=== PATIENT | female | born 1980 | race Caucasian/White ===

== ENCOUNTER 2017-05-31 05:48 | Emergency (ER) | payer OTHER ==
[2017-05-31 06:33] VITALS: BMI 24.2
[2017-05-31 07:04] LABS: URINE APPEARANCE CLOUDY; URINE BILIRUBIN NEGATIVE (NEGATIVE); URINE BLOOD 1+ (NEGATIVE); URINE COLOR LTYELLOW; URINE GLUCOSE (UA) NEGATIVE (NEGATIVE); URINE KETONE NEGATIVE (NEGATIVE); URINE NITRITE NEGATIVE (NEGATIVE); URINE UROBILINOGEN NEGATIVE mg/dL (0.2-1.0)
[2017-05-31 07:10] LABS: URINE PROTEIN 1+ (NEGATIVE)
[2017-05-31 07:11] LABS: URINE BACTERIA MANY /hpf (NONE SEEN); URINE RBC 6 /hpf (0-3); URINE WBC 250 /hpf (3-5)
--- NOTE | 2017-05-31 07:24 | PDOC ---
History of Present Illness - General Chief Complaint: Back Pain Stated Complaint: BACK PAIN Time Seen by Provider: 05/31/17 06:45 - History of Present Illness Initial Comments: 05/31/17 07:21 36 F with no PMH presents to ER with lower back pain x 1 week. Pt states that the pain is in the middle of her lower back, nonradiating. She denies any trauma or falls. Pt also endorses mild burning sensation at the end of urination. Denies h/o UTI. Pt has been taking tylenol with minimal relief. Yesterday, her friend gave her amoxicillin from the DR, which she has taken 2 doses of. Pt denies F/C. Denies vaginal discharge or bleeding. LMP was 2 weeks ago. Denies abdominal pain/N/V/D. Past History - Past Medical History Allergies/Adverse Reactions: Allergies Allergy/AdvReac Type Severity Reaction Status Date / Time No Known Allergies Allergy Verified 05/31/17 06:31 Home Medications: Ambulatory Orders Sulfamethoxazole/Trimethoprim [Bactrim Ds -] 1 tab PO BID #14 tablet 05/31/17 COPD: Yes - Reproductive History Is Patient Now?: No (#): 4 Para: 1 Therapeutic (s) & number: No - Immunization History Td Vaccination: Yes Immunization Up to Date: Yes - Suicide/Smoking/Psychosocial Hx Smoking Status: No Smoking History: Never smoked Years of Tobacco Use: 0 Have you smoked in the past 12 months: No Number of Cigarettes Smoked Daily: 0 Cigars Per Day: 0 Information on smoking cessation initiated: No Hx Alcohol Use: No Drug/Substance Use Hx: No Substance Use Type: None Review of Systems - Review of Systems Comments:: 05/31/17 07:23 "GENERAL/CONSTITUTIONAL: No fever or chills. No weakness. HEAD, EYES, EARS, NOSE AND THROAT: No change in vision. No ear pain or discharge. No sore throat. CARDIOVASCULAR: No chest pain or shortness of breath. RESPIRATORY: No cough, wheezing, or hemoptysis. GASTROINTESTINAL: No nausea, vomiting, diarrhea or constipation. GENITOURINARY: +dysuria MUSCULOSKELETAL: No joint or muscle swelling or pain. + lower back pain SKIN: No rash NEUROLOGIC: No headache, vertigo, loss of consciousness, or change in strength/ sensation. ENDOCRINE: No increased thirst. No abnormal weight change. HEMATOLOGIC/LYMPHATIC: No anemia, easy bleeding, or history of blood clots. ALLERGIC/IMMUNOLOGIC: No hives or skin allergy. " *Physical Exam - Vital Signs Last Vital Signs Temp Pulse Resp BP Pulse Ox 98.7 F 79 20 140/91 100 05/31/17 06:31 05/31/17 06:31 05/31/17 06:31 05/31/17 06:31 05/31/17 06:31 - Physical Exam Comments: 05/31/17 07:23 "GENERAL: Awake, alert, and fully oriented, in no acute distress HEAD: No signs of trauma EYES: PERRLA, EOMI, sclera anicteric, conjunctiva clear ENT: Auricles normal inspection, hearing grossly normal, nares patent, oropharynx clear without exudates. Moist mucosa NECK: Nontender, no stepoffs, Normal ROM, supple, no lymphadenopathy, JVD, or masses LUNGS: Breath sounds equal, clear to auscultation bilaterally. No wheezes, and no crackles HEART: Regular rate and rhythm, normal S1 and S2, no murmurs, rubs or gallops ABDOMEN: Soft, nontender, normoactive bowel sounds. No guarding, no rebound. No masses BACK: no CVAT, no midline tenderness EXTREMITIES: Normal range of motion, no edema. No clubbing or cyanosis. No cords, erythema, or tenderness NEUROLOGICAL: Cranial nerves II through XII intact. 5/5 strength and sensation in all extremities, Normal speech, normal gait SKIN: Warm, Dry, normal turgor, no rashes or lesions noted. " ED Treatment Course - LABORATORY CBC & Chemistry Diagram: 05/31/17 07:37 05/31/17 07:37 - ADDITIONAL ORDERS Additional order review: Laboratory Results 05/31/17 05/31/17 06:23 06:23 Urine Color Ltyellow Urine Appearance Cloudy Urine pH 5.0 Ur Specific [place] 1.008 Urine Protein 1+ H Urine Glucose (UA) Negative Urine Ketones Negative Urine Blood 1+ H Urine Nitrite Negative Urine Bilirubin Negative Urine Urobilinogen Negative Urine WBC (Auto) 250 Urine RBC (Auto) 6 Ur Epithelial Cells Rare Urine Bacteria Many Urine HCG, Qual Negative Medical Decision Making - Medical Decision Making 05/31/17 07:23 36 F with lower back pain and dysuria. Likely UTI. Pt with no midline spinal tenderness, no CVA tenderness. Vitals stable with normal exam. - Labs, UA, UCx, UPT *DC/Admit/Observation/Transfer Diagnosis at time of Disposition: UTI (urinary tract infection) - Discharge Dispostion Disposition: HOME Condition at time of disposition: Stable - Prescriptions Prescriptions: Sulfamethoxazole/Trimethoprim [Bactrim Ds -] 1 tab PO BID #14 tablet - Referrals Referrals: Chris Ivan MD [Staff Physician] - - Patient Instructions Printed Discharge Instructions: Urinary Tract Infection Additional Instructions: Take antibiotics as prescribed. Call Dr. Ivan's office for follow up with a primary care doctor within 1 week. Return to the emergency department if you have any new, worsening or concerning symptoms. Print Language: AZERI - Post Discharge Activity - Attestations Physician Attestion: 06/02/17 12:43 I, Dr. Geovanny Dominguez MD, attest that this document has been prepared under my direction and personally reviewed by me in its entirety. I further attest, that it accurately reflects all work, treatment, procedures and medical decision -making performed by me.
[2017-05-31 07:50] LABS: BASOPHIL 0.6 % (0-2.0); EOSINOPHIL 1.2 % (0-4.5); MCH 30.3 pg (25.7-33.7); MCHC 33.2 g/dl (32.0-36.0); MEAN CELL VOLUME 91.3 fl (80-96); MEAN PLT VOLUME 8.9 fl (7.5-11.1); NEUTROPHILS 60.4 % (42.8-82.8); PLATELET COUNT 255 K/MM3 (134-434); RDW 13.8 % (11.6-15.6)
[2017-05-31 08:29] LABS: ALBUMIN 3.6 g/dl (3.4-5.0); ANION GAP 7 (8-16); BILIRUBIN,TOTAL 0.3 mg/dL (0.2-1.0); CALCIUM 8.5 mg/dL (8.5-10.1); CO2 24 mmol/L (21-32); CREATININE 0.6 mg/dL (0.55-1.02); GLUCOSE,RANDOM 87 mg/dL (74-106); TOT PROT 7.1 g/dl (6.4-8.2)
[2017-05-31 08:35] LABS: ALK PHOS 51 U/L (45-117); SGPT/ALT 15 U/L (12-78)
[2017-05-31 08:39] LABS: SGOT/AST 13 U/L (15-37)
--- NOTE | 2017-05-31 09:21 | PDOC ---
*Physical Exam - Vital Signs Last Vital Signs Temp Pulse Resp BP Pulse Ox 98.7 F 79 20 140/91 100 05/31/17 06:31 05/31/17 06:31 05/31/17 06:31 05/31/17 06:31 05/31/17 06:31 ED Treatment Course - LABORATORY CBC & Chemistry Diagram: 05/31/17 07:37 05/31/17 07:37 - ADDITIONAL ORDERS Additional order review: Laboratory Results 05/31/17 05/31/17 05/31/17 07:37 06:23 06:23 Sodium 137 Potassium 4.4 Chloride 106 Carbon Dioxide 24 Anion Gap 7 L BUN 9 D Creatinine 0.6 D Creat Clearance w eGFR > 60 Random Glucose 87 Calcium 8.5 Total Bilirubin 0.3 D AST 13 L D ALT 15 D Alkaline Phosphatase 51 Total Protein 7.1 Albumin 3.6 Urine Color Ltyellow Urine Appearance Cloudy Urine pH 5.0 Ur Specific [place] 1.008 Urine Protein 1+ H Urine Glucose (UA) Negative Urine Ketones Negative Urine Blood 1+ H Urine Nitrite Negative Urine Bilirubin Negative Urine Urobilinogen Negative Urine WBC (Auto) 250 Urine RBC (Auto) 6 Ur Epithelial Cells Rare Urine Bacteria Many Urine HCG, Qual Negative 05/31/17 07:37 RBC 3.92 MCV 91.3 MCHC 33.2 RDW 13.8 MPV 8.9 Neutrophils % 60.4 Lymphocytes % 30.5 Monocytes % 7.3 Eosinophils % 1.2 Basophils % 0.6 Medical Decision Making - Medical Decision Making 05/31/17 09:20 Labs within normal limits. No CVAT on exam. UA consistent with UTI. Will treat and discharge with follow-up with primary care doctor. I discussed the physical exam findings, ancillary test results and final diagnoses with the patient. I answered all of the patient's questions. The patient was satisfied with the care received and felt comfortable with the discharge plan and treatment plan. The patient will call their primary care physician within 24 hours to arrange follow-up and will return to the Emergency Department with any new, persistent or worsening symptoms. *DC/Admit/Observation/Transfer Diagnosis at time of Disposition: UTI (urinary tract infection) - Discharge Dispostion Disposition: HOME Condition at time of disposition: Stable Admit: No - Prescriptions Prescriptions: Sulfamethoxazole/Trimethoprim [Bactrim Ds -] 1 tab PO BID #14 tablet - Referrals Referrals: Chris Ivan MD [Staff Physician] - - Patient Instructions Printed Discharge Instructions: Urinary Tract Infection Additional Instructions: Take antibiotics as prescribed. Call Dr. Ivan's office for follow up with a primary care doctor within 1 week. Return to the emergency department if you have any new, worsening or concerning symptoms. Print Language: BOLIVIAN - Post Discharge Activity - Attestations Physician Attestion: 05/31/17 09:21 I, Dr. Ellen Rangel MD, attest that this document has been prepared under my direction and personally reviewed by me in its entirety. I further attest, that it accurately reflects all work, treatment, procedures and medical decision -making performed by me.
[2017-05-31 10:05] VITALS: BP 105/52; PULSE 88; TEMP 98.5
[2017-05-31 11:47] LABS: URINE LEUK ESTERASE 3+ (NEGATIVE)
--- NOTE | 2017-06-02 07:49 | PDOC ---
Patient Follow-up (Call Back) - Post ED Follow - Up Condition at time of discharge: Stable Disposition at time of original discharge: HOME Reason for Call Back: Abnwl. Microbiology (Urine culture on preliminary shows lactose fermenting negative bacilli. Patient currently on Bactrim. Will await final report.)
== END 2017-05-31 10:05 | disposition home or self-care (01) ==
LOC: JER 05:48
DX: N39.0 Urinary tract infection, site not specified (principal); B96.89 Other specified bacterial agents as the cause of diseases classified elsewhere
CPT/HCPCS: 36415; 80053; 81003; 81015; 84703; 85025; 87086; 87186; 99284-25

== ENCOUNTER 2018-02-11 02:31 | Emergency (ER) | payer OTHER ==
[2018-02-11 03:00] VITALS: BP 143/94; PULSE 76; TEMP 98.3; BMI 24.3
--- NOTE | 2018-02-11 03:41 | PDOC ---
History of Present Illness - General History Source: Patient Exam Limitations: No Limitations - History of Present Illness Initial Comments: 02/11/18 03:46 The patient is a 37 year old female, with no significant past medical history, who presents to the emergency department with, chest pain and back pain. She reports 5 days of back pain and 2 days of chest pain which she describes as a pressure-like sensation. She has never had similar symptoms in the past. She reports taking Ibuprofen with minimal relief and Aleve without any relief. She denies any recent travel or trauma. She denies recent fevers, chills, headache or dizziness. She denies recent nausea, vomit, diarrhea or constipation. She denies recent dysuria, frequency, urgency or hematuria. She denies recent shortness of breath. Allergies: NKA Past surgical history: None reported. Social history: Nonsmoker. Denies EtOH use and recreational drug use. <Johnathan Loera - Last Filed: 02/11/18 03:46> - General History Source: Patient <Lalo Mas - Last Filed: 02/11/18 05:09> - General Chief Complaint: Chest Pain Stated Complaint: CHEST AND BACK PAIN Time Seen by Provider: 02/11/18 03:41 Past History <Johnathan Loera - Last Filed: 02/11/18 03:46> - Past Medical History COPD: Yes - Reproductive History (#): 4 Para: 1 Therapeutic (s) & number: No - Immunization History Td Vaccination: Yes Immunization Up to Date: Yes - Suicide/Smoking/Psychosocial Hx Smoking Status: No Smoking History: Never smoked Years of Tobacco Use: 0 Have you smoked in the past 12 months: No Number of Cigarettes Smoked Daily: 0 Cigars Per Day: 0 Information on smoking cessation initiated: No Hx Alcohol Use: No Drug/Substance Use Hx: No Substance Use Type: None <Lalo Mas - Last Filed: 02/11/18 05:09> - Past Medical History Allergies/Adverse Reactions: Allergies Allergy/AdvReac Type Severity Reaction Status Date / Time No Known Allergies Allergy Verified 02/11/18 02:59 Home Medications: Ambulatory Orders Ibuprofen 800 mg PO TID #30 tablet 02/11/18 Methocarbamol [Robaxin -] 500 mg PO TID #30 tablet 02/11/18 Review of Systems - Review of Systems Able to Perform ROS?: Yes Comments:: 02/11/18 03:47 CONSTITUTIONAL: Absent: fever, no chills, no fatigue EYES: Absent: visual changes ENT: Absent: ear pain, no sore throat CARDIOVASCULAR: Present: Chest pain. Absent: no palpitations RESPIRATORY: Absent: cough, no SOB GI: Absent: abdominal pain, no nausea, no vomiting, no constipation, no diarrhea GENITOURINARY: Absent: dysuria, no frequency, no hematuria MUSKULOSKELETAL: Present: Back pain. Absent: no arthralgia, no myalgia SKIN: Absent: rash NEURO: Absent: headache All Other Systems: Reviewed and Negative <Johnathan Loera - Last Filed: 02/11/18 03:46> *Physical Exam - Vital Signs Last Vital Signs Temp Pulse Resp BP Pulse Ox 98.3 F 76 20 143/94 99 02/11/18 02:35 02/11/18 02:35 02/11/18 02:35 02/11/18 02:35 02/11/18 02:35 - Physical Exam Comments: 02/11/18 03:48 GENERAL: Well developed, well nourished. Awake and alert. No acute distress. HEENT: Normocephalic, atraumatic. PERRLA, EOMI. No conjunctival pallor. Sclera are non- icteric. Moist mucous membranes. Oropharynx is clear. NECK: Supple. Full ROM. No JVD. Carotid pulses 2+ and symmetric, without bruits. No thyromegaly. No lymphadenopathy. CARDIOVASCULAR: Regular rate and rhythm. No murmurs, rubs, or gallops. Distal pulses are 2+ and symmetric. PULMONARY: No evidence of respiratory distress. Lungs clear to auscultation bilaterally. No wheezing, rales or rhonchi. ABDOMINAL: Soft. Non-tender. Non-distended. No rebound or guarding. No organomegaly. Normoactive bowel sounds. MUSCULOSKELETAL Normal range of motion at all joints. No bony deformities or tenderness. No CVA tenderness. EXTREMITIES: No cyanosis. No clubbing. No edema. No calf tenderness. SKIN: Warm and dry. Normal capillary refill. No rashes. No jaundice. NEUROLOGICAL: Alert, awake, appropriate. Cranial nerves 2-12 intact. No deficits to light touch and temperature in face, upper extremities and lower extremities. No motor deficits in the in face, upper extremities and lower extremities. Normoreflexic in the upper and lower extremities. Normal speech. Toes are down- going bilaterally. Gait is normal without ataxia. PSYCHIATRIC: Cooperative. Good eye contact. Appropriate mood and affect. <Johnathan Loera - Last Filed: 02/11/18 03:46> - Vital Signs Last Vital Signs Temp Pulse Resp BP Pulse Ox 98.3 F 76 20 143/94 99 02/11/18 02:35 02/11/18 02:35 02/11/18 02:35 02/11/18 02:35 02/11/18 02:35 <Lalo Mas - Last Filed: 02/11/18 05:09> Heart Score/ECG Review #1 02/11/18 03:49 EKG performed at: 11 Feb 2018 Vent Rate 69 bpm VA interval 122 ms QRS duration 84 ms QT/QTc 402/430 ms P-R-T axes 58 61 51 Poor data quality, interpretation may be adversely affected Normal sinus rhythm Normal ECG <Johnathan Loera - Last Filed: 02/11/18 03:46> ED Treatment Course - LABORATORY CBC & Chemistry Diagram: 02/11/18 03:53 02/11/18 03:53 <Lalo Mas - Last Filed: 02/11/18 05:09> *DC/Admit/Observation/Transfer - Attestations Scribe Attestion: 02/11/18 03:50 Documentation prepared by Johnathan Loera, acting as durable medical equipment technician for Lalo Mas DO. <Johnathan Loera - Last Filed: 02/11/18 03:46> - Discharge Dispostion Decision to Admit order: No <Lalo Mas - Last Filed: 02/11/18 05:09> Diagnosis at time of Disposition: Chest pain - Discharge Dispostion Disposition: HOME Condition at time of disposition: Stable - Referrals Referrals: Kenroy Pereira MD [Staff Physician] - - Patient Instructions Printed Discharge Instructions: DI for Chest Pain Additional Instructions: Please follow up with your facilities assistant as soon as possible. TAke medication as directed. Print Language: YI
[2018-02-11] MEDS ORDERED: METHOCARBAMOL 500 MG TABLET PO ONE (03:42)
[2018-02-11] MEDS ORDERED: IBUPROFEN 400 MG TABLET (FP) PO ONE ×2 (03:42→03:45)
[2018-02-11] MEDS ORDERED: METHOCARBAMOL 500 MG TABLET ONE (03:45)
[2018-02-11 03:57] LABS: URINE APPEARANCE CLEAR; URINE BILIRUBIN NEGATIVE (<2.0 mg/dL); URINE COLOR STRAW; URINE GLUCOSE (UA) NEGATIVE (NEGATIVE); URINE KETONE NEGATIVE (NEGATIVE); URINE NITRITE NEGATIVE (NEGATIVE); URINE PROTEIN NEGATIVE (NEGATIVE); URINE UROBILINOGEN NEGATIVE mg/dL (0.2-1.0)
[2018-02-11 03:59] LABS: HCG,QUALITATIVE URINE Negative
[2018-02-11 04:01] LABS: URINE LEUK ESTERASE 1+ (NEGATIVE)
[2018-02-11 04:16] LABS: BASO % 0.7 % (0-2.0); EOS % 0.7 % (0-4.5); HEMATOCRIT 36.8 % (32.4-45.2); HEMOGLOBIN 12.5 GM/dL (10.7-15.3); LYMPH % 35.2 % (8-40); MCH 31.3 pg (25.7-33.7); MEAN CELL VOLUME 92.1 fl (80-96); MEAN PLT VOLUME 9.3 fl (7.5-11.1); MONO % 6.7 % (3.8-10.2); NEUT % 56.7 % (42.8-82.8); PLATELET COUNT 255 K/MM3 (134-434); RDW 14.2 % (11.6-15.6); WHITE BLOOD COUNT 8.5 K/mm3 (4.0-10.0)
[2018-02-11 04:20] LABS: INR 0.99 (0.83-1.09); PROTHROMBIN TIME (PATIENT) 11.2 SEC (9.7-13.0)
[2018-02-11 04:25] LABS: ALBUMIN 3.9 g/dl (3.4-5.0); ANION GAP 9 (8-16); BLOOD UREA NITROGEN 13 mg/dL (7-18); CALCIUM 9.3 mg/dL (8.5-10.1); CHLORIDE 107 mmol/L (98-107); CO2 29 mmol/L (21-32); CREATININE 0.8 mg/dL (0.55-1.02); GLUCOSE,RANDOM 98 mg/dL (74-106); MAGNESIUM 1.9 mg/dL (1.8-2.4); POTASSIUM 4.3 mmol/L (3.5-5.1); SGOT/AST 14 U/L (15-37); SGPT/ALT 20 U/L (12-78); SODIUM 145 mmol/L (136-145)
[2018-02-11 04:30] LABS: ALK PHOS 60 U/L (45-117); BILIRUBIN,TOTAL 0.3 mg/dL (0.2-1.0); TOT PROT 7.3 g/dl (6.4-8.2)
[2018-02-11 05:04] LABS: EPI CELLS FEW /HPF (FEW); URINE BACTERIA RARE /hpf (NONE SEEN); URINE HYALINE CAST 1 /lpf; URINE MUCUS RARE
[2018-02-11] MEDS ORDERED: SUCRALFATE 1 GM TABLET (FP) PO STA (05:09)
[2018-02-11] MEDS ORDERED: SUCRALFATE 1 GM TABLET (FP) ONE (05:16)
--- NOTE | 2018-02-11 15:46 | EKG ---
Test Reason : Blood Pressure : / mmHG Vent. Rate : 069 BPM Atrial Rate : 069 BPM P-R Int : 122 ms QRS Dur : 084 ms QT Int : 402 ms P-R-T Axes : 058 061 051 degrees QTc Int : 430 ms POOR DATA QUALITY, INTERPRETATION MAY BE ADVERSELY AFFECTED NORMAL SINUS RHYTHM NORMAL ECG WHEN COMPARED WITH ECG OF 10-MAR-2016 05:13, NO SIGNIFICANT CHANGE WAS FOUND Confirmed by ANTONIO DUCKWORTH, STEPHANIE ([id number]) on 02/11/2018 3:45:44 PM Referred By: Confirmed By:STEPHANIE ALVAREZ MD
== END 2018-02-11 05:24 | disposition home or self-care (01) ==
LOC: JER 02:31
DX: R07.9 Chest pain, unspecified (principal)
CPT/HCPCS: 36415; 80053; 81003; 81015; 82550; 83735; 84484; 84703; 85025; 85379; 85610; 93005; 93010; 99283-25

== ENCOUNTER 2018-05-14 10:51 | Emergency (ER) | payer OTHER ==
[2018-05-14 11:15] VITALS: BP 125/82; PULSE 64; BMI 24.3
[2018-05-14] MEDS ORDERED: ONDANSETRON 4 MG/2 ML VIAL IVPUSH ONE (13:28)
[2018-05-14] MEDS ORDERED: SODIUM CHLORIDE 1,000 ML IV STA (13:28)
[2018-05-14] MEDS ORDERED: ONDANSETRON 4 MG/2 ML VIAL ONE (13:54)
[2018-05-14 14:19] LABS: BASO % 0.3 % (0-2.0); HEMATOCRIT 38.4 % (32.4-45.2); HEMOGLOBIN 12.5 GM/dL (10.7-15.3); LYMPH % 14.7 % (8-40); MCH 29.9 pg (25.7-33.7); MCHC 32.6 g/dl (32.0-36.0); MEAN CELL VOLUME 91.7 fl (80-96); MEAN PLT VOLUME 9.1 fl (7.5-11.1); MONO % 4.5 % (3.8-10.2); NEUT % 80.5 % (42.8-82.8); PLATELET COUNT 284 K/MM3 (134-434); RBC 4.19 M/mm3 (3.60-5.2); RDW 13.4 % (11.6-15.6); WHITE BLOOD COUNT 13.1 K/mm3 (4.0-10.0)
[2018-05-14 14:49] LABS: ALBUMIN 4.4 g/dl (3.4-5.0); ALK PHOS 63 U/L (45-117); ANION GAP 8 MMOL/L (8-16); BILIRUBIN,TOTAL 0.2 mg/dL (0.2-1); BLOOD UREA NITROGEN 15 mg/dL (7-18); CALCIUM 9.5 mg/dL (8.5-10.1); CHLORIDE 105 mmol/L (98-107); CO2 27 mmol/L (22-28); CREATININE 0.7 mg/dL (0.55-1.3); GLUCOSE,RANDOM 118 mg/dL (74-106); LIPASE 131 U/L (73-393); POTASSIUM 4.8 mmol/L (3.5-5.1); SGOT/AST 19 U/L (15-37); SGPT/ALT 28 U/L (13-61); SODIUM 139 mmol/L (136-145); TOT PROT 8.5 g/dl (6.4-8.2)
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
[2018-05-14 15:19] VITALS: TEMP 97.3
[2018-05-14 15:40] LABS: URINE APPEARANCE SLCLOUDY; URINE BILIRUBIN NEGATIVE (<2.0 mg/dL); URINE COLOR YELLOW; URINE GLUCOSE (UA) NEGATIVE (NEGATIVE); URINE KETONE NEGATIVE (NEGATIVE); URINE LEUK ESTERASE NEGATIVE (NEGATIVE); URINE NITRITE NEGATIVE (NEGATIVE); URINE PROTEIN NEGATIVE (NEGATIVE); URINE UROBILINOGEN NEGATIVE mg/dL (0.2-1.0)
[2018-05-14 15:43] LABS: HCG,QUALITATIVE URINE Negative
[2018-05-14 16:12] LABS: METHADONE, UR NEGATIVE ng/ml (CUTOFF=300); OPIATES, URI NEGATIVE ng/ml (CUTOFF=300); PHENCYCLIDINE,URINE NEGATIVE ng/ml (CUTOFF=25); URINE AMPHETAMINES NEGATIVE ng/ml (CUTOFF=500); URINE BARBITURATES NEGATIVE ng/ml (CUTOFF=200); URINE BENZODIAZEPINES NEGATIVE ng/ml (CUTOFF=200)
[2018-05-14 16:28] LABS: COCAINE, UR POSITIVE ng/ml (CUTOFF=300)
== END 2018-05-14 18:13 | disposition home or self-care (01) ==
LOC: JER 10:51
PROC: 3E033GC Introduction of Other Therapeutic Substance into Peripheral Vein, Percutaneous Approach (ICD-10-PCS; principal; 2018-05-14)
PROC: 3E0337Z Introduction of Electrolytic and Water Balance Substance into Peripheral Vein, Percutaneous Approach (ICD-10-PCS; 2018-05-14)
DX: F10.129 Alcohol abuse with intoxication, unspecified (principal)
CPT/HCPCS: 36415; 80053; 80307; 81003; 83690; 83735; 84703; 85025; 87070; 87430; 96361; 96374; 99282-25; J7030

== ENCOUNTER 2018-11-21 21:20 | Emergency (ER) | payer OTHER ==
[2018-11-21 21:43] VITALS: BP 119/78; PULSE 83; TEMP 98.4; BMI 24.3
--- NOTE | 2018-11-21 21:51 | PDOC ---
History of Present Illness - General Chief Complaint: Eye Problem Stated Complaint: LT EYE PAIN Time Seen by Provider: 11/21/18 21:44 History Source: Patient - History of Present Illness Initial Comments: 11/21/18 22:18 37 year old female c/o right eye pain reports after sleeping with contact on . denies vision change or loss. patient reports that she took her contacts off no pmhx Past History - Past Medical History Allergies/Adverse Reactions: Allergies Allergy/AdvReac Type Severity Reaction Status Date / Time No Known Allergies Allergy Verified 11/21/18 21:40 Home Medications: Ambulatory Orders Erythromycin 0.5% Eye Ointment [Erythromycin 0.5% Eye Ointment -] 1 applic OP TID #2 tube 11/21/18 COPD: Yes - Reproductive History (#): 4 Para: 1 Therapeutic (s) & number: No - Immunization History Td Vaccination: Yes Immunization Up to Date: Yes - Suicide/Smoking/Psychosocial Hx Smoking Status: No Smoking History: Current some day smoker Years of Tobacco Use: 0 Have you smoked in the past 12 months: No Number of Cigarettes Smoked Daily: 0 Cigars Per Day: 0 Information on smoking cessation initiated: No Hx Alcohol Use: No Drug/Substance Use Hx: No Substance Use Type: None Review of Systems - Review of Systems Able to Perform ROS?: Yes Is the patient limited [place] proficient: No Constitutional: No: Symptoms Reported, See HPI, Chills, Diaphoresis, Fever, Loss of Appetite, Malaise, Night Sweats, Weakness, Weight Stable, Unintentional Wgt. Loss, Unexplained wgt Loss, Other HEENTM: Yes: Eye Pain. No: Symptoms Reported, See HPI, Blurred Vision, Tearing , Recent change in vision, Double Vision, Cataracts, Ear Pain, Ocular Prothesis , Ear Discharge, Nose Pain, Nose Congestion, Tinnitus, Nose Bleeding, Hearing Loss, Throat Pain, Throat Swelling, Mouth Pain, Dental Problems, Difficulty Swallowing, Mouth Swelling, Other *Physical Exam - Vital Signs Last Vital Signs Temp Pulse Resp BP Pulse Ox 98.4 F 83 16 119/78 100 11/21/18 21:41 11/21/18 21:41 11/21/18 21:41 11/21/18 21:41 11/21/18 21:41 - Physical Exam General Appearance: Yes: Appropriately Dressed HEENT: positive: Other (+ right conjunctival erythema, + floroscein uptake area proximal to right inner canthus PERRLA [place] 20/40 in affected eye) Respiratory/Chest: positive: Lungs Clear, Normal Breath Sounds Cardiovascular: positive: Regular Rhythm, Regular Rate Gastrointestinal/Abdominal: positive: Normal Bowel Sounds, Soft. negative: Tender Neurologic: positive: Fully Oriented, Alert Medical Decision Making - Medical Decision Making : right corneal abrasion P: Flouroscein tetracaine erythromycin outpatient ophthalmology appointment *DC/Admit/Observation/Transfer Diagnosis at time of Disposition: Right corneal abrasion Qualifiers: Encounter type: initial encounter Qualified Code(s): S05.01XA - Injury of conjunctiva and corneal abrasion without foreign body, right eye, initial encounter - Discharge Dispostion Disposition: HOME - Prescriptions Prescriptions: Erythromycin 0.5% Eye Ointment [Erythromycin 0.5% Eye Ointment -] 1 applic OP TID #2 tube - Referrals Referrals: Andrew Landry MD [Staff Physician] - Call tomorrow - Patient Instructions Printed Discharge Instructions: Corneal Abrasion Additional Instructions: do not rub your eyes do not wear contact lenses until cleared by your centrifuge operator. use erythromycin as prescribed. follow up with an centrifuge operator as soon as possible., - Post Discharge Activity Forms/Work/School Notes: Back to Work
[2018-11-21] MEDS ORDERED: ERYTHROMYCIN 0.5% OPHTHALMIC OINTMENT 3.5 GM TUBE ONE (22:07)
[2018-11-22] MEDS ORDERED: ERYTHROMYCIN 0.5% OPHTHALMIC OINTMENT 3.5 GM TUBE OU ONE (05:57)
== END 2018-11-21 22:56 | disposition home or self-care (01) ==
LOC: JER 21:20
DX: H18.821 Corneal disorder due to contact lens, right eye (principal)
CPT/HCPCS: 99281-25

== ENCOUNTER 2019-03-18 05:03 | Emergency (ER) | payer OTHER ==
--- NOTE | 2019-03-18 05:28 | PDOC ---
History of Present Illness - General Stated Complaint: BACK PAIN Time Seen by Provider: 03/18/19 05:28 - History of Present Illness Initial Comments: 03/18/19 05:59 38 year old woman with no pmhx history who presents with back pain that occurred after bending over and placing a cake down for her nieces birthday. At around 10pm the patient took 2 naproxen. 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 She states the pain is worse on L lower back and worsens with twisting and movement. She denies radiation of the pain to the legs, upper back or groin. She denies any burning with urination or blood in the urine. She has no other complaints. ROS GENERAL/CONSTITUTIONAL: No fever or chills. No weakness. HEAD, EYES, EARS, NOSE AND THROAT: No change in vision. No sore throat. CARDIOVASCULAR: No chest pain or shortness of breath RESPIRATORY: No cough, wheezing, or hemoptysis. GASTROINTESTINAL: No nausea, vomiting, diarrhea or constipation. GENITOURINARY: No dysuria, frequency, or change in urination. MUSCULOSKELETAL: No joint pain. + back pain. SKIN: No rash NEUROLOGIC: No headache, vertigo, loss of consciousness, or change in strength/ sensation. PE GENERAL: Awake, alert, and fully oriented, in no acute distress HEAD: No signs of trauma, normocephalic, atraumatic EYES: EOMI, sclera anicteric, conjunctiva clear ENT: oropharynx clear without exudates. Moist mucosa NECK: Normal ROM, supple LUNGS: No distress, speaks full sentences, clear to auscultation bilaterally HEART: Regular rate and rhythm, normal S1 and S2, no murmurs, rubs or gallops, peripheral pulses normal and equal bilaterally. ABDOMEN: Soft, nontender, normoactive bowel sounds. No guarding, no rebound. No masses BACK: L lumbar paraspinal tenderness, no spinal tenderness or step offs EXTREMITIES : Normal inspection, Normal range of motion, no edema. No clubbing or cyanosis. NEUROLOGICAL: Cranial nerves II through XII grossly intact. Normal speech, no focal sensorimotor deficits SKIN: Warm, Dry, normal turgor, no rashes or lesions noted MDM DDX including but not limited to: msk r/o uti vs preg W/U: - preg ED Course: Patient able to ambulate without difficulty ua with uti lidocaine patch, toradol keflex dosed Janet Esposito, PGY2 Emergency Medicine Past History - Past Medical History Allergies/Adverse Reactions: Allergies Allergy/AdvReac Type Severity Reaction Status Date / Time No Known Allergies Allergy Verified 03/18/19 05:39 Home Medications: Ambulatory Orders Cephalexin Monohydrate [Keflex -] 500 mg PO BID 7 Days #14 capsule 03/18/19 Loratadine [Claritin -] 10 mg PO DAILY 03/18/19 COPD: Yes - Reproductive History (#): 4 Para: 1 Therapeutic (s) & number: No - Immunization History Td Vaccination: Yes Immunization Up to Date: Yes - Suicide/Smoking/Psychosocial Hx Smoking Status: No Smoking History: Current some day smoker Years of Tobacco Use: 0 Have you smoked in the past 12 months: No Number of Cigarettes Smoked Daily: 0 Cigars Per Day: 0 Hx Alcohol Use: No Drug/Substance Use Hx: No Substance Use Type: None Vital Signs - Vital Signs #1 Blood Pressure: 109/73 MAP: 85 *DC/Admit/Observation/Transfer Diagnosis at time of Disposition: Back pain, Urinary tract infection - Discharge Dispostion Disposition: HOME Condition at time of disposition: Stable Decision to Admit order: No - Prescriptions Prescriptions: Cephalexin Monohydrate [Keflex -] 500 mg PO BID 7 Days #14 capsule - Referrals - Patient Instructions Printed Discharge Instructions: DI for Low Back Pain Additional Instructions: You were seen in the ED for complaints of low back pain You had a urine lab test that showed a urinary tract infection. You were prescribed antibiotics to your pharmacy to be taken as prescribed Return to the ED immediately if you experience worsening low back pain, numbness or tingling in the legs or groin, urinary incontinence. - Post Discharge Activity Forms/Work/School Notes: Back to Work
[2019-03-18 05:42] VITALS: BMI 26.1
--- NOTE | 2019-03-18 06:20 | PDOC ---
Attending Attestation - Resident Resident Name: Janet Esposito - ED Attending Attestation I have performed the following: I have examined & evaluated the patient, The case was reviewed & discussed with the resident, I agree w/resident's findings & plan, Exceptions are as noted - HPI HPI: 03/18/19 06:18 38 F with atraumatic lower back pain. States pain started while bending down to orange picker a cake. Denies any falls/trauma. Denies any incontinence or saddle anesthesia. No weakness/numbness in any leg. - Physicial Exam PE: 03/18/19 06:19 "GENERAL: Awake, alert, and fully oriented, in no acute distress. HEAD: No signs of trauma EYES: PERRLA, EOMI, sclera anicteric, conjunctiva clear ENT: Auricles normal inspection, hearing grossly normal, nares patent, oropharynx clear without exudates. Moist mucosa NECK: Nontender, no stepoffs, Normal ROM, supple, no lymphadenopathy, JVD, or masses LUNGS: Breath sounds equal, clear to auscultation bilaterally. No wheezes, and no crackles HEART: Regular rate and rhythm, normal S1 and S2, no murmurs, rubs or gallops ABDOMEN: Soft, nontender, normoactive bowel sounds. No guarding, no rebound. No masses EXTREMITIES: Normal range of motion, no edema. No clubbing or cyanosis. No cords, erythema, or tenderness NEUROLOGICAL: Cranial nerves II through XII intact. 5/5 strength and sensation in all extremities, Normal speech, normal gait, normal cerebellar function SKIN: Warm, Dry, normal turgor, no rashes or lesions noted. BACK: + Paraspinal lumbar TTP, no midline TTP, no stepoffs - Medical Decision Making 03/18/19 06:19 38 F with lower back pain. Suspect lumbar radiculopathy vs disk herniation. Pt without any neuro deficits to suggest cord compression or cauda equina. - Pain control - F/u ortho Pt is well appearing, with normal vitals. Clinically stable for DC at this time. I discussed the physical exam findings, ancillary test results and final diagnoses with the patient. I answered all of the patient's questions. The patient was satisfied with the care received and felt comfortable with the discharge plan and treatment plan. The patient agrees to follow up with the primary care physician within 24-72 hours.
[2019-03-18 06:51] LABS: EPI CELLS 8.1 /HPF (0-5/HPF); HYALINE CASTS 7 /lpf (0-8); PH,URINE 5.5 (5.0-8.0); URINE APPEARANCE CLEAR; URINE BACTERIA 119.1 /hpf (NEGATIVE); URINE BILIRUBIN NEGATIVE (NEGATIVE); URINE COLOR YELLOW; URINE GLUCOSE (UA) NEGATIVE (NEGATIVE); URINE KETONE NEGATIVE (NEGATIVE); URINE LEUK ESTERASE 1+ (NEGATIVE); URINE NITRITE NEGATIVE (NEGATIVE); URINE PROTEIN NEGATIVE (NEGATIVE); URINE RBC 8 /hpf (0-4); URINE WBC 10 /hpf (0-5)
[2019-03-18] MEDS ORDERED: CEPHALEXIN MONOHYDRATE 500 MG CAPSULE (UD) PO ONE (06:59)
[2019-03-18] MEDS ORDERED: KETOROLAC TROMETHAMINE 15 MG/ML VIAL IM ONE (06:59)
[2019-03-18] MEDS ORDERED: LIDOCAINE 5% TOPICAL PATCH TP ONE (07:01)
[2019-03-18] MEDS ORDERED: LIDOCAINE 5% TOPICAL PATCH ONE (07:39)
[2019-03-18] MEDS ORDERED: CEPHALEXIN MONOHYDRATE 500 MG CAPSULE (UD) ONE (07:39)
[2019-03-18] MEDS ORDERED: KETOROLAC TROMETHAMINE 15 MG/ML VIAL ONE (07:39)
[2019-03-18 08:14] VITALS: PULSE 85; TEMP 97.8
[2019-03-18] MEDS ORDERED: LIDOCAINE PATCH REMOVAL MC SCH (22:00)
[2019-03-20 12:31] VITALS: BP 109/73
== END 2019-03-18 07:47 | disposition home or self-care (01) ==
LOC: JER 05:03
PROC: 3E0233Z Introduction of Anti-inflammatory into Muscle, Percutaneous Approach (ICD-10-PCS; principal; 2019-03-18)
DX: M54.9 Dorsalgia, unspecified (principal); N39.0 Urinary tract infection, site not specified; F17.210 Nicotine dependence, cigarettes, uncomplicated; J44.9 Chronic obstructive pulmonary disease, unspecified
CPT/HCPCS: 81003; 84703; 87086; 96372; 99283-25

== ENCOUNTER 2019-03-23 22:35 | Emergency (ER) | payer OTHER ==
[2019-03-23 22:41] VITALS: BMI 26.6
[2019-03-24] MEDS ORDERED: ACETAMINOPHEN 325 MG TABLET (FP) PO ONE (00:31)
[2019-03-24] MEDS ORDERED: LIDOCAINE 5% TOPICAL PATCH TP ONE (00:32)
[2019-03-24] MEDS ORDERED: ACETAMINOPHEN 325 MG TABLET (FP) ONE (00:35)
[2019-03-24] MEDS ORDERED: LIDOCAINE 5% TOPICAL PATCH ONE (00:36)
--- NOTE | 2019-03-24 01:00 | PDOC ---
Documentation entered by Job Christian SCRIBE, acting as scribe for Inessa Senior DO. Inessa Senior DO: This documentation has been prepared by the Gino berry Daniel, SCRIBE, under my direction and personally reviewed by me in its entirety. I confirm that the documentation accurately reflects all work, treatment, procedures, and medical decision making performed by me. Attending Attestation - Resident Resident Name: RexGeoff - ED Attending Attestation I have performed the following: I have examined & evaluated the patient, The case was reviewed & discussed with the resident, I agree w/resident's findings & plan, Exceptions are as noted - HPI HPI: 03/24/19 00:34 The patient is a 38 year old female with no past medical history here today for evaluation of left sided back pain. The patient was seen on 03/18/19 for back pain after bending over and lifting a cake. Patient reports that her back pain has continued since her discharge and is currently a 7/10, is worse with movement, and is localized to the left lower back. Patient denies headache, lightheadedness. Denies fever, chills. Denies chest pain, shortness of breath. Denies nausea, vomiting, diarrhea, abdominal pain. Denies burning with urination. Allergies: NKA - Physicial Exam PE: 03/24/19 00:45 Constitutional: Awake, alert, oriented. No acute distress. Head: Normocephalic. Atraumatic Eyes: PERRL. EOMI. Conjunctivae are not pale. ENT: Mucous membranes are moist and intact. Posterior pharynx without exudates or erythema. Uvula midline. Neck: Supple. Full ROM. No lymphadenopathy. Cardiovascular: Regular rate. Regular rhythm. S1, S2 regular. Distal pulses are 2+ and symmetric. Pulmonary/Chest: No evidence of respiratory distress. Clear to auscultation bilaterally No wheezing, rales or rhonchi. Abdominal: Soft and non-distended. There is no tenderness. No rebound, guarding or rigidity. No organomegaly. No palpable masses. Good bowel sounds. Back: +left paraspinal/low back tenderness. No CVA tenderness. Musculoskeletal: No edema. No cyanosis. No clubbing. Full range of motion in all extremities. Nocalf tenderness. Radial/pedal pulses are intact and 2+ bilaterally Skin: Skin is warm and dry. No petechiae. No purpura. Neurological: Alert and oriented to person, place, and time. Cranial nerves II -XII are grossly intact. Normal speech. Strength is grossly symmetric. No sensory deficits. Psychiatric: Good eye contact. Normal interaction, affect and behavior. - Medical Decision Making 03/24/19 00:58 I, Dr. Inessa Senior, DO, attest that this document has been prepared under my direction and personally reviewed by me in its entirety. I further attest, that it accurately reflects all work, treatment, procedures and medical decision -making performed by me. a/p: 38yo female with L paraspinal lbp -dx with uti last thursday -last day of pills of keflex remainng -denies urinary complaints -no dysuria, no freq, no urgency, no flank pain -pt with reproducible L lbp- paraspinal ttp -no midline ttp, no stepoffs or deformities -no f/c -no other complaints -will repeat urine, ucg -tylenol/lidoderm for pain -when ucg neg will add robaxin and motrin -no redflags, no signs/symptoms of caude equina -no radiation of the pain 03/24/19 01:50 upreg neg pt to xray
--- NOTE | 2019-03-24 01:04 | PDOC ---
History of Present Illness - General Chief Complaint: Back Pain Stated Complaint: BACK PAINS Time Seen by Provider: 03/24/19 00:20 History Source: Patient Exam Limitations: No Limitations - History of Present Illness Initial Comments: 03/24/19 00:58 Source: Patient HPI: 38yo F with no PMH presenting with back pain for the past week. Patient was seen here for back pain on 03/18/19 and was diagnosed with a UTI and MSK back pain. She returns today s/p cephalexin 500mg BID with continued left mid- back pain (down for 10 to 7/10). Pain is positional, worse with back extension, improves with ibuprofen. Denies any urinary symptoms at this time. Denies any prior pains like this - no FHx kidney stones. Has had UTIs in the past, generally resolve with antibiotics, she presents today worried about her kidney since she had a UTI and continues to have back pain. Denies any constitutional symptoms: no fevers, chills, TUBBS, nausea, vomiting, weakness. All: NKDA Meds: claritin and benadryl OTC as needed PMH: denies PSH: plastics procedure Past History - Travel Traveled outside of the country in the last 30 days: No Close contact w/someone who was outside of country & ill: No - Past Medical History Allergies/Adverse Reactions: Allergies Allergy/AdvReac Type Severity Reaction Status Date / Time No Known Allergies Allergy Verified 03/23/19 22:41 Home Medications: Ambulatory Orders Cephalexin Monohydrate [Keflex -] 500 mg PO BID 7 Days #14 capsule 03/18/19 Loratadine [Claritin -] 10 mg PO DAILY 03/18/19 Ibuprofen [Motrin -] 600 mg PO TID PRN #15 tablet 03/24/19 Methocarbamol [Robaxin -] 500 mg PO BID PRN #10 tablet 03/24/19 COPD: No - Reproductive History (#): 4 Para: 1 Therapeutic (s) & number: No - Immunization History Td Vaccination: Yes Immunization Up to Date: Yes - Suicide/Smoking/Psychosocial Hx Smoking Status: No Smoking History: Never smoked Years of Tobacco Use: 0 Have you smoked in the past 12 months: No Number of Cigarettes Smoked Daily: 0 Cigars Per Day: 0 Hx Alcohol Use: No Drug/Substance Use Hx: No Substance Use Type: None Review of Systems - Review of Systems Able to Perform ROS?: Yes Is the patient limited Occitan proficient: Yes Constitutional: No: Chills, Diaphoresis, Fever, Weakness HEENTM: No: Recent change in vision, Nose Congestion, Throat Pain, Throat Swelling Respiratory: No: Cough, Shortness of Breath, Wheezing Cardiac (ROS): No: Chest Pain, Irregular Heart Rate, Palpitations, Syncope, Chest Tightness ABD/GI: No: Constipated, Diarrhea, Nausea, Vomiting : Yes: See HPI. No: Burning, Dysuria, Discharge, Frequency, Hematuria, Incontinence Musculoskeletal: Yes: See HPI, Back Pain. No: Joint Pain, Muscle Weakness Integumentary: No: Bruising, Dryness, Lumps, Pruritus, Rash Neurological: No: Headache, Numbness, Tingling Psychiatric: No: Anxiety, Depression, Emotional Problems, Mood Swings Endocrine: No: Excessive Sweating, Increased Urine Hematologic/Lymphatic: No: Anemia, Blood Clots, Easy Bleeding, Easy Bruising All Other Systems: Reviewed and Negative *Physical Exam - Vital Signs Last Vital Signs Temp Pulse Resp BP Pulse Ox 98.7 F 82 18 108/41 L 98 03/23/19 22:38 03/23/19 22:38 03/23/19 22:38 03/23/19 22:38 03/23/19 22:38 - Physical Exam Comments: 03/24/19 01:05 Vitals reviewed: AFVSS Gen: WDWN woman, appears stated age, no acute distress, appears anxious HEENT: NCAT, MMM, EOMI, normal morphologies, trachea midline, sclera anicteric CV: RRR, nl s1s2, no murmurs appreciated Pulm: CTABL, normal WOB, no wheezes / rales / rhonchi Abd: soft, nontender, nondistended Back: No CVA tenderness, no ecchymosis, no rash, no tenderness on palpation of paraspinal or intercostal muscles, straight leg pain with reproduced pain at 60 degrees on the left leg/side but less than with other movements. Of note, patient with difficulty laying back on exam table 2/2 pain, had to lay on right side then rotate over to flat. Ext: WWP, no edema, 2+ radial and PY pulses ED Treatment Course - Medications Given in the ED: ED Medications Discontinued Medications Generic Name Dose Route Start Last Admin Trade Name Freq PRN Reason Stop Dose Admin Acetaminophen 975 mg 03/24/19 00:31 03/24/19 00:43 Tylenol - PO 03/24/19 00:32 975 mg ONCE ONE Administration Lidocaine 1 patch 03/24/19 00:32 03/24/19 00:43 Lidoderm Patch - TP 03/24/19 00:33 1 patch ONCE ONE Administration Medical Decision Making - Medical Decision Making 03/24/19 01:10 38yo woman with no PMH presenting with continued now subacute L back pain. No signs or symptoms of systemic infection, stable vitals. Concerning for muscle spasm vs less likely resistant UTI vs ureterolithiasis. -UA, UPreg -Xray spine -Tylenol and Lidoderm -Toradol and Robaxin pending UPreg 03/24/19 02:18 -Patient improved with pain medication and patch -No UTI on UA -POCUS of kidneys without free fluid, hydro, or evidence of stones Dispo: Home with follow-up at PCP *DC/Admit/Observation/Transfer Diagnosis at time of Disposition: Muscle spasm of back - Discharge Dispostion Disposition: HOME Condition at time of disposition: Good Decision to Admit order: No - Prescriptions Prescriptions: Ibuprofen [Motrin -] 600 mg PO TID PRN #15 tablet PRN Reason: Back Pain Methocarbamol [Robaxin -] 500 mg PO BID PRN #10 tablet PRN Reason: Back Pain - Referrals [place] [facility] [place] [facility] [place]Provider Group] - Patient Instructions Printed Discharge Instructions: DI for Back Spasm Additional Instructions: You can to the emergency department for evaluation of back pain. Thank you for coming in. Two medications have been sent to your pharmacy. Please pick these up and use them as directed. Also please finish the course of antibiotics you were previously prescribed. Please follow up with your primary care doctor. If you do not have one, please call the provided clinic and arrange an appointment in the next 1-2 days to establish care and get further evaluation. Please return to the emergency department for any new or concerning symptoms. These may include but are not limited to: worsening pain that isn't responsive to your medication, fevers and chills or nausea and vomiting. Puede ir al departamento de emergencias para evaluar el dolor de espalda. Tereso por venir. Se bush enviado dos medicamentos a jteer farmacia. Por favor, recjalos y utilcelos nathaly se indica. Tambin por favor termine el curso de antibiticos que se le recetaron previamente. Por favor, lamont un seguimiento con jeter mdico de atencin primaria. Si no tiene susana, por favor llame a la clnica proporcionada y concerte mónica estefanía en los prximos 1-2 moffett para establecer atencin y obtener mónica evaluacin adicional. Por favor, regrese al departamento de emergencias para cualquier sntoma nuevo o preocupante. Estos pueden incluir, entre otros: empeoramiento del dolor que no responde a los medicamentos, fiebres y escalofros o nuseas y vmitos. Print Language: LITHUANIAN - Post Discharge Activity
[2019-03-24] MEDS ORDERED: IBUPROFEN 600 MG TABLET (FP) PO ONE ×2 (01:26→01:37)
[2019-03-24] MEDS ORDERED: METHOCARBAMOL 500 MG TABLET PO ONE (01:26)
[2019-03-24] MEDS ORDERED: METHOCARBAMOL 500 MG TABLET ONE (01:37)
[2019-03-24 02:03] LABS: EPI CELLS 1.9 /HPF (0-5/HPF); HYALINE CASTS 4 /lpf (0-8); PH,URINE 5.5 (5.0-8.0); URINE APPEARANCE CLEAR; URINE BACTERIA 61.1 /hpf (NEGATIVE); URINE BILIRUBIN NEGATIVE (NEGATIVE); URINE COLOR YELLOW; URINE GLUCOSE (UA) NEGATIVE (NEGATIVE); URINE KETONE NEGATIVE (NEGATIVE); URINE LEUK ESTERASE NEGATIVE (NEGATIVE); URINE NITRITE NEGATIVE (NEGATIVE); URINE PROTEIN NEGATIVE (NEGATIVE); URINE RBC 1 /hpf (0-4); URINE UROBILINOGEN 0.2 mg/dL (0.2-1.0); URINE WBC 3 /hpf (0-5)
[2019-03-24 02:41] VITALS: BP 122/89; PULSE 72; TEMP 98.5
[2019-03-24] MEDS ORDERED: LIDOCAINE PATCH REMOVAL MC SCH (22:00)
== END 2019-03-24 02:41 | disposition home or self-care (01) ==
LOC: JER 22:35
PROC: BT43ZZZ Ultrasonography of Bilateral Kidneys (ICD-10-PCS; principal; 2019-03-23)
DX: M62.830 Muscle spasm of back (principal)
CPT/HCPCS: 72100-TC-FY; 81003; 84703; 87086; 99282-25

== ENCOUNTER 2020-10-24 17:04 | Emergency (ER) | payer OTHER ==
[2020-10-24] MEDS ORDERED: predniSONE 20 MG TABLET (UD) PO ONE (17:22)
[2020-10-24] MEDS ORDERED: diphenhydrAMINE HCL 50 MG CAPSULE PO ONE (17:22)
[2020-10-24] MEDS ORDERED: diphenhydrAMINE HCL 25 MG CAPSULE (FP) PO ONE (17:26)
[2020-10-24] MEDS ORDERED: predniSONE 20 MG TABLET (UD) ONE (17:26)
[2020-10-24 17:46] VITALS: BP 136/74; PULSE 81; TEMP 98; BMI 24.3
== END 2020-10-24 18:19 | disposition home or self-care (01) ==
LOC: FER 17:04
DX: T20.10XA Burn of first degree of head, face, and neck, unspecified site, initial encounter (principal)
CPT/HCPCS: 99283-25